=== PATIENT | male | born 1970 | race Caucasian/White ===

== ENCOUNTER 2022-12-19 18:46 | Inpatient (IN) | payer OTHER, SELFPAY ==
--- NOTE | ~2022-12-19 | XR_ITS ---
XR chest 1V portable DATE: 12/20/2022 01:48 INDICATION: Cough. Hypertension. TECHNIQUE: Portable upright AP chest. On 12/20/2022 at 0145 hours COMPARISON: September 17, 2015 2 view chest FINDINGS: There is pulmonary vascular, interstitial prominence and patchy pulmonary airspace disease suggesting congestive changes, pulmonary interstitial edema. Pneumonia is not excluded. Clinical destin elation is advised. No pleural effusion or pneumothorax is detected. IMPRESSION: Probable congestive changes Reviewed, dictated and finalized at location A. IMPRESSION: Probable congestive changes
--- NOTE | ~2022-12-19 | US_ITS ---
US venous doppler LE RT DATE: 12/20/2022 08:54 INDICATION: Erythema and swelling of right lower extremity TECHNIQUE: Real-time and color flow imaging and Doppler analysis of the veins of the right lower extr emity COMPARISON: None FINDINGS: Prominent lymph nodes are noted in the right groin area. There is spontaneous and phasic flow and normal augmentation and color flow signal and normal sis delroy of the deep veins of the right lower extremity. IMPRESSION: Evidence of deep venous thrombosis of right lower extremity Reviewed, dictated and finalized at Location A. Reviewed, dictated and finalized at location A.
--- NOTE | ~2022-12-19 | MR_ITS ---
EXAMINATION: MR foot RT wo con DATE: 12/22/2022 11:49 INDICATION: Right great toe ulcer. TECHNIQUE: Magnetic resonance imaging (MRI) of the right foot was performed without intravenous contr ast. COMPARISON: Right great toe radiographs 12/20/2022 FINDINGS: Bone alignment is normal. No fracture. There is moderate osteoarthritis of first tarsometat arsal joint. There is mild osteoarthritis of first metatarsophalangeal joint and some of the interpha langeal joints. There is an effusion of first metatarsophalangeal joint. The flexor and extensor tend ons are normal. There is mild intermetatarsal bursitis between the first and second rays. There is wi despread mild to moderate fatty atrophy of the musculature. There is increased T2-weighted signal int ensity in the musculature, likely subacute on chronic denervation. There is subcutaneous edema in the forefoot with a dorsal predominance. IMPRESSION: 1. No evidence of osteomyelitis. 2. Polyarticular osteoarthritis. Reviewed, dictated and finalized at location A.
--- NOTE | ~2022-12-19 | US_ITS ---
EXAMINATION: US arterial ankle brachial ind DATE: 12/21/2022 14:46 INDICATION: Right great toe ulcer. TECHNIQUE: Segmental pressures and plethysmographic and Doppler waveforms of the brachial and lower e xtremity arteries were obtained. COMPARISON: None. FINDINGS: Right and left brachial artery pressures of 101 mm Hg and 112 mm Hg, respectively, are concordant (no rmal difference <= 30 mmHg). The right ankle-brachial index (JEANINE) is 1.06 (normal >= 0.9-1.0). The right great toe-brachial index (TBI) is 0.85 (normal >= 0.65). Arterial Doppler waveforms are triphasic in posterior tibial artery a nd biphasic in dorsalis pedis. The left JEANINE is 1.09. The left TBI is 0.60. Arterial Doppler waveforms are biphasic in posterior tibi al artery and at least triphasic in dorsalis pedis. IMPRESSION: 1. Normal right JEANINE and TBI. No significant right-sided arterial occlusive disease. 2. Mildly decreased left TBI and normal left JEANINE, consistent with left-sided arterial occlusive disea se. Note that JEANINE may be overestimated if arteries are calcified. Reviewed, dictated and finalized at location A. IMPRESSION: 1. Normal right JEANINE and TBI. No significant right-sided arterial occlusive dise ase. 2. Mildly decreased left TBI and normal left JEANINE, consistent with left-sided ar terial occlusive disease. Note that JEANINE may be overestimated if arteries are ca lcified.
--- NOTE | ~2022-12-19 | XR_ITS ---
XR toe 1st RT min 2V DATE: 12/20/2022 01:30 INDICATION: Plantar wound TECHNIQUE: 3 views of the great toe COMPARISON: None FINDINGS: Small ulceration is suggested at the anterior aspect of the great toe. No subcutaneous emph ysema or radiopaque soft tissue foreign body, fracture, dislocation, periosteal reaction or bone dest ruction of the right great toe is evident. IMPRESSION: No significant bony abnormality of the right great toe Reviewed, dictated and finalized at location A.
[2022-12-19 19:49] VITALS: BP 96/50; PULSE 72; RESP 15; TEMP 36.7; O2SAT 96
[2022-12-19 20:05] LABS: Basophils Percent Auto 0.3 % (0.2-1.2); Eosinophils Absolute Auto 0.1 K/mm3 (0-0.3); Eosinophils Percent Auto 1.4 % (0-4.4); Hematocrit 38.7 % (42.0-52.0); Hemoglobin 13.5 g/dL (14.0-18.0); Immature Granulocyte Absolute 0.02 K/mm3 (0.00-0.031); Immature Granulocyte Percent A 0.3 % (0-0.5); Immature Platelet Fraction Pct 3.6 % (0.9-11.2); Lymphocytes Absolute Auto 0.87 K/mm3 (0.9-3.2); Lymphocytes Percent Auto 11.3 % (18.3-44.2); Mean Corpuscular HGB Conc 34.9 g/dl (32-36); Mean Corpuscular Hemoglobin 31.5 pg (26-34); Mean Corpuscular Volume 90.2 fl (80-100); Mean Platelet Volume 9.6 fl (7.4-10.4); Monocytes Percent Auto 12.9 % (2.6-8.5); Neutrophils Absolute Auto 5.7 K/mm3 (1.3-6.7); Neutrophils Percent Auto 73.8 % (45.5-73.1); Platelet Count Result 100 k/mm3 (150-375); Red Blood Count 4.29 M/mm3 (4.6-6.20); Red Cell Distribution Width 13.9 % (11.5-14.5); White Blood Count 7.7 K/mm3 (4.5-10.0)
[2022-12-19 20:16] LABS: Alanine Aminotransferase 60 U/L (6-50); Albumin Level 3.9 g/dL (3.5-5.1); Alkaline Phosphatase 114 U/L (38-126); Anion Gap 10 mmol/L (8-16); Aspartate Amino Transferase 151 U/L (17-59); Bilirubin,Total 1.5 mg/dL (0.2-1.3); Blood Urea Nitrogen 25 mg/dL (9-20); Calcium 8.4 mg/dL (8.4-10.2); Carbon Dioxide 21 mmol/L (22-30); Chloride 96 mmol/L (98-107); Estimated CRCL calculation 70 ml/min; Estimated Glomerular Filt Rate 49; Glucose 107 mg/dL (65-110); Potassium 3.2 mmol/L (3.4-5.0); Sodium 127 mmol/L (137-145)
[2022-12-20] VITALS (28 sets, daily range): BP systolic 78–109; BP diastolic 48–66; PULSE 60–77; RESP 14–34; TEMP 36.7–36.8; O2SAT 95–100; BMI 42.7
--- NOTE | 2022-12-20 00:53 | ED.EXTPRO ---
HPI - Extremity Problem General Chief complaint: Extremity Problem,Nontraumatic Stated complaint: right leg swelling Time Seen by Provider: 12/20/22 00:32 Source: patient Mode of arrival: ambulatory Limitations: no limitations History of Present Illness HPI Narrative: This is a 52-year-old male that presents to the emergency department for redness and swelling of the right lower extremity noted over the last 2 days. Reports he does have an ulceration to the right great toe. No recent travel. He does report that he recently had some teeth pulled a couple weeks ago. He denies any fevers. Related Data Home Medications Medication Instructions Recorded Confirmed carvedilol 12.5 mg tablet 12.5 mg PO Q12H 04/04/19 10/14/22 furosemide 40 mg tablet 40 mg PO QAM 04/04/19 10/14/22 potassium chloride 20 mEq 20 meq PO DAILY 04/04/19 10/14/22 tablet,extended release(part/cryst) (Klor-Con M) sacubitril 97 mg-valsartan 103 mg 1 tablet PO BID 04/04/19 10/14/22 tablet (Entresto) Allergies Allergy/AdvReac Type Severity Reaction Status Date / Time No Known Allergies Allergy Verified 12/19/22 19:54 Review of Systems Review of Systems: CONSTITUTIONAL: Denies fever CARDIOVASCULAR: Reports edema. Denies chest pain RESPIRATORY: Denies dyspnea. SKIN: Reports redness and swelling All systems reviewed & are unremarkable except as noted in HPI and below PMFSH Past Medical History Medical History (Updated 12/20/22 @ 04:20 by Nusrat Galvez PA-C) Cardiomyopathy Gout Morbid obesity with BMI of 45.0-49.9, adult Surgical History Surgical History History of arthroscopy of right knee (~2011) History of lumbar fusion (~11/04/14) History of total left knee replacement (~08/11/17) History of total right knee replacement (~06/16/17) Family History Family History Mother Family history of diabetes mellitus in first degree relative, Onset Age: 65 Other Family history of arthritis Social History Social History (Reviewed 10/14/22 @ 10:15 by ANY Reich Smoking packs per day: 0.25 Smoking cigarettes per day: 5.0 Years smoked: 10 Smoking pack-years: 2.50 Smoking status: Former smoker Second hand tobacco smoke exposure: No Smoking end date: 05/25/11 Alcohol intake: current Substance use: never Lack of Transportation: No Lack of Food: Never True Current Housing: I Have Housing Concerned About Future Housing: No Difficulty Paying Gas/Electric Bills: No Difficulty Paying for Meds: No Currently Unemployed: No Education: High School Diploma/GED Difficulty w/ Childcare or Family Care: No Exam Narrative: GENERAL: Well-appearing, well-nourished, and in no acute distress. HEAD: Normocephalic, atraumatic. EYES: EOMI. CHEST: Clear to auscultation. No respiratory distress. No wheezes rales or rhonchi HEART: Regular rate and rhythm. No murmur heard. Normal peripheral pulses. EXTREMITIES: Normal range of motion. Non pitting edema present to the right lower extremity with patchy erythema of the lower leg and thigh. Ulcerating wound noted to the right great toe that is foul smelling, but without surrounding erythema or abnormal drainage SKIN: Warm, dry, no rash. NEURO: No focal deficits. Alert and oriented x3. PSYCH: Normal mood and affect Course Course Emergency Course: Patient and family updated on workup and agree with plan of care Consultations Consultation #1: Spoke with hospitalist about patient and workup who accepts admission Date: 12/20/22 Vital Signs Vital signs: Vital Signs Temperature 98.1 F 12/19/22 19:49 Pulse Rate 72 12/19/22 19:49 Respiratory Rate 15 12/19/22 19:49 Blood Pressure 96/50 L 12/19/22 19:49 Pulse Oximetry 96 12/19/22 19:49 Oxygen Delivery Room Air 12/19/22 19:49 Temperature 98.3 F 12/20/22 00:
[2022-12-20] MEDS: SODIUM CHLORIDE 0.9% IV 500 ML 999 ML IV CONT (01:08)
[2022-12-20] MEDS: POTASSIUM CHLORIDE 20 MEQ PACKET (FOR LIQUID) 40 MEQ PO (01:08)
[2022-12-20] MEDS: PIPERACILLN/TAZ 3.375GM/NS50ML 3.375 GM/50 ML BAG IVPB (01:10)
[2022-12-20 01:36] LABS: Magnesium 2.2 mg/dL (1.6-2.3)
[2022-12-20] MEDS: SODIUM CHLORIDE 0.9% IV 1,000 ML 999 ML IV CONT ×2 (01:36→04:08)
[2022-12-20 01:39] LABS: Erythrocyte Sedimentation Rate 61 mm/hr (0-20)
[2022-12-20 01:45] LABS: INR 1.3; Prothrombin Time 16.4 Seconds (11.1-14.7)
[2022-12-20 01:46] LABS: Partial Thromboplastin Time 40.4 SECONDS (22.3-36.8)
[2022-12-20 01:58] LABS: Hemoglobin A1C 5.9 % (<5.7)
[2022-12-20 01:59] LABS: D Dimer 2.67 ug/mL (<0.48)
[2022-12-20 02:26] LABS: CRP 15.8 mg/dL (<1.0)
[2022-12-20 02:27] LABS: Influenza A QL RT-PCR Negative (Negative); Influenza B QL RT-PCR Negative (Negative); SARS-CoV-2 RNA PCR Negative (Negative)
--- NOTE | 2022-12-20 04:30 | ADMGEN ---
This patient, Krzysztof Urbina, was admitted to Intensive Care Unit-7. Patient/family oriented to hospital policies and general routines including ID bracelet, bed and alarms, visiting hours, pain management, procedures, bathroom and other care routines, personal items, smoking policy, room service/diet, and visiting hours. Information on how to activate the Rapid Response Team has been discussed. Patient/Family are encouraged to report perceived risks to care and to ask questions if they do not understand what they are told or what they should do.
--- NOTE | 2022-12-20 06:32 | PC.NURSE ---
Dr Jones called for VTE prophylaxis, 40 mg lovenox daily ordered.
[2022-12-20] MEDS: ENOXAPARIN 40 MG/0.4 ML SYRINGE SUB-Q (08:00)
--- NOTE | 2022-12-20 11:50 | PM.IMHP ---
H&P: HPI History of Present Illness Date/Time: 12/20/22 11:50 Chief Complaint: Redness and swelling of right lower extremity Narrative: 82-year-old male with history of heart failure, diabetes among other comorbidities is presenting with right lower extremity redness and swelling for about 2 days. There is also an ulceration noted about 2 weeks ago. He was started on IV antibiotics and admitted to the ICU for further care. He denies any falls or trauma to the area. No chest pain or shortness of breath. No nausea, vomiting or diarrhea. No fevers or chills. Review of Systems Review of Systems: 12 point review of systems was assessed and was negative except as noted in the HPI [facility] Past Medical History Medical History Cardiomyopathy Gout Morbid obesity with BMI of 45.0-49.9, adult Surgical History Surgical History History of arthroscopy of right knee (~2011) History of lumbar fusion (~11/04/14) History of total left knee replacement (~08/11/17) History of total right knee replacement (~06/16/17) Family History Family History Mother Family history of diabetes mellitus in first degree relative, Onset Age: 65 Myocardial infarction Other Family history of arthritis Social History Social History Smoking packs per day: 0.25 Smoking cigarettes per day: 5.0 Years smoked: 10 Smoking pack-years: 2.50 Smoking status: Former smoker Tobacco type: cigarettes Smokeless tobacco user: chewing tobacco Second hand tobacco smoke exposure: No Smoking end date: 05/25/11 Alcohol intake: current Drinks per week: 20 Substance use: never Lack of Transportation: No Lack of Food: Never True Current Housing: I Have Housing Concerned About Future Housing: No Difficulty Paying Gas/Electric Bills: No Difficulty Paying for Meds: No Currently Unemployed: No Education: High School Diploma/GED Difficulty w/ Childcare or Family Care: No Spiritual care concerns: No Meds Home Medications and Allergies Home Medications Medication Instructions Recorded Confirmed Type carvedilol 12.5 mg tablet 12.5 mg PO Q12H 04/04/19 12/20/22 History furosemide 40 mg tablet 40 mg PO QAM 04/04/19 12/20/22 History potassium chloride 20 mEq 20 meq PO DAILY 04/04/19 12/20/22 History tablet,extended release(part/cryst) (Klor-Con M) sacubitril 97 mg-valsartan 103 mg 1 tablet PO BID 04/04/19 12/20/22 History tablet (Entresto) allopurinol 300 mg tablet 300 mg PO DAILY #90 tabs 01/15/22 12/20/22 Rx tadalafil 20 mg tablet (Cialis) 20 mg PO DAILY PRN sexual activity 10/14/22 12/20/22 Rx #10 tabs multivitamin with minerals 1 tablet PO DAILY 12/20/22 12/20/22 History Allergies Allergy/AdvReac Type Severity Reaction Status Date / Time No Known Allergies Allergy Verified 12/19/22 19:54 Vital Signs Vital Signs - 24 hr 12/19/22 19:49 12/20/22 00:37 12/20/22 00:56 Temperature 98.1 F 98.3 F Pulse Rate 72 62 61 Respiratory Rate 15 14 17 Blood Pressure 96/50 L 78/48 L 81/48 L Pulse Oximetry 96 100 97 Oxygen Delivery Room Air 12/20/22 00:27 12/20/22 00:28 12/20/22 00:52 Temperature Pulse Rate 67 64 62 Respiratory Rate 17 Blood Pressure 82/48 L Pulse Oximetry 98 97 Oxygen Delivery 12/20/22 00:59 12/20/22 01:00 12/20/22 01:14 Temperature Pulse Rate 67 67 60 Respiratory Rate 30 H 31 H 34 H Blood Pressure 81/48 L 86/51 L Pulse Oximetry 98 97 Oxygen Delivery 12/20/22 01:15 12/20/22 01:16 12/20/22 02:06 Temperature Pulse Rate 60 60 Respiratory Rate 21 H 26 H Blood Pressure 83/51 L 88/50 L Pulse Oximetry Oxygen Delivery 12/20/22 01:46 12/20/22 02:36 12/20/22 04:08 Temperature Pulse Rate 65 63
[2022-12-20 11:53] LABS: Toxigenic C. Diff NEGATIVE (NEGATIVE)
[2022-12-20] MEDS: carvediloL 12.5 MG TABLET PO ×2 (12:31→21:01)
[2022-12-21] VITALS (9 sets, daily range): BP systolic 97–115; BP diastolic 53–61; PULSE 60–73; RESP 16–20; TEMP 36.4–37.2; O2SAT 97–99
[2022-12-21 04:24] LABS: Estimated CRCL calculation 131 ml/min; Estimated Glomerular Filt Rate > 60
--- NOTE | 2022-12-21 08:10 | PM.IMPN ---
Progress Note: A&P Assessment and Plan (1) Cellulitis: Qualifiers: Laterality: right Site of cellulitis: extremity Site of cellulitis of extremity: lower extremity Qualified Code(s): L03.115 - Cellulitis of right lower limb Code(s): L03.90 - Cellulitis, unspecified Status: Acute Assessment and Plan: Started on IV vancomycin 12/20, given 1 dose of Zosyn 12/20 Follow-up blood and wound cultures taken 12/20 (2) Gout: Code(s): M10.9 - Gout, unspecified Status: Acute Assessment and Plan: Hold allopurinol while inpatient (3) Obesity: Code(s): E66.9 - Obesity, unspecified Status: Acute (4) Diabetes mellitus type 2 in obese: Code(s): E11.69 - Type 2 diabetes mellitus with other specified complication; E66.9 - Obesity, unspecified Status: Acute Assessment and Plan: A1c 5.9, Accu-Cheks with sliding scale insulin Blood glucose reviewed 12/21 (5) Congestive heart failure: Code(s): I50.9 - Heart failure, unspecified Status: Acute Assessment and Plan: Chronic diastolic heart failure, grade 2 diastolic dysfunction noted on echo from 2021 Appears euvolemic Continue Coreg and Entresto Plan DVT prophylaxis with Lovenox GI prophylaxis not indicated Code status full code Subjective Date/time seen: 12/21/22 08:10 Interval history: 52-year-old male with history of heart failure diabetes is presenting with right lower extremity redness and swelling and currently being treated for cellulitis. No overnight events noted. No chest pain or shortness of breath. No nausea, vomiting or diarrhea. No fevers or chills. Review of Systems Review of Systems: 12 point review of systems was assessed and was negative except as noted in the HPI Exam Narrative: General: No acute distress, alert and oriented per baseline HEENT: Atraumatic, normocephalic, mucous membranes moist CV: Regular rate and rhythm, S1, S2 Lungs: Clear to auscultation bilaterally, no rales or crackles noted, no wheezes, good air entry Abdomen: Soft, nontender, nondistended Extremities: Normal to inspection Skin: Nonblanching petechial and purpuric rash over right lower extremity above the sock line to a few inches infrapatellar, ulcerating lesion noted on right great toe, plantar surface, rash is not spreading, somewhat more confluent in the middle with more aggregated redness Psych: Euthymic, normal affect Objective Data Vital Signs Vital Signs: Vital Signs - 24 hr 12/20/22 12:00 12/20/22 12:31 12/20/22 10:00 Temperature 98.1 F Pulse Rate 69 72 68 Respiratory Rate 30 H Blood Pressure 109/57 L Pulse Oximetry 99 Oxygen Delivery 12/20/22 12:00 12/20/22 14:00 12/20/22 16:00 Temperature Pulse Rate 70 69 66 Respiratory Rate Blood Pressure Pulse Oximetry Oxygen Delivery 12/20/22 16:00 12/20/22 18:00 12/20/22 12:00 Temperature 98.2 F Pulse Rate 64 77 Respiratory Rate 25 H Blood Pressure 98/58 L Pulse Oximetry 95 Oxygen Delivery Room Air 12/20/22 16:00 12/20/22 20:20 12/20/22 21:01 Temperature 98.1 F Pulse Rate 66 67 Respiratory Rate 20 Blood Pressure 96/48 L Pulse Oximetry 98 Oxygen Delivery Room Air 12/20/22 20:00 12/21/22 00:00 12/21/22 00:00 Temperature 98.9 F Pulse Rate 64 Respiratory Rate 20 Blood Pressure 97/56 L Pulse Oximetry 97 Oxygen Delivery Room Air Room Air 12/20/22 20:00 12/20/22 22:00 12/21/22 00:00 Temperature Pulse Rate 63 61 71 Respiratory Rate Blood Pressure Pulse Oximetry Oxygen Delivery 12/21/22 02:00 12/21/22 04:00 12/21/22 04:00 Temperature 98.2 F Pulse Rate 64 67 Respiratory Rate 16 Blood Pressure 114/61 Pulse Oximetry 97 Oxygen Delivery Room Air 12/21/22 04:00 12/21/22 06:00 Temperature Pulse Rate 73 62 Respiratory Rate Blood Pressure Pulse Oximetry Oxygen
[2022-12-21 08:15] LABS: Basophils Percent Auto 0.3 % (0.2-1.2); Eosinophils Percent Auto 4.7 % (0-4.4); Hematocrit 38.8 % (42.0-52.0); Hemoglobin 13.5 g/dL (14.0-18.0); Immature Granulocyte Absolute 0.02 K/mm3 (0.00-0.031); Immature Granulocyte Percent A 0.6 % (0-0.5); Lymphocytes Absolute Auto 0.78 K/mm3 (0.9-3.2); Lymphocytes Percent Auto 21.5 % (18.3-44.2); Mean Corpuscular HGB Conc 34.8 g/dl (32-36); Mean Corpuscular Hemoglobin 32.4 pg (26-34); Mean Platelet Volume 11.1 fl (7.4-10.4); Monocytes Absolute Auto 0.5 K/mm3 (0.1-0.6); Monocytes Percent Auto 14.1 % (2.6-8.5); Neutrophils Absolute Auto 2.1 K/mm3 (1.3-6.7); Neutrophils Percent Auto 58.8 % (45.5-73.1); Platelet Count Result 100 k/mm3 (150-375); Red Blood Count 4.17 M/mm3 (4.6-6.20); Red Cell Distribution Width 14.3 % (11.5-14.5); White Blood Count 3.6 K/mm3 (4.5-10.0)
[2022-12-21 08:16] LABS: Eosinophils Absolute Auto 0.2 K/mm3 (0-0.3)
[2022-12-21 08:29] LABS: Alanine Aminotransferase 57 U/L (6-50); Albumin Level 3.4 g/dL (3.5-5.1); Alkaline Phosphatase 106 U/L (38-126); Anion Gap 8 mmol/L (8-16); Aspartate Amino Transferase 105 U/L (17-59); Blood Urea Nitrogen 15 mg/dL (9-20); Calcium 8.3 mg/dL (8.4-10.2); Carbon Dioxide 23 mmol/L (22-30); Chloride 106 mmol/L (98-107); Estimated CRCL calculation 118 ml/min; Estimated Glomerular Filt Rate > 60; Glucose 89 mg/dL (65-110); Potassium 3.5 mmol/L (3.4-5.0); Sodium 137 mmol/L (137-145)
[2022-12-21 09:03] LABS: Glucose Point of Care 104 mg/dl (65-105)
[2022-12-21 09:08] LABS: Procalcitonin 2.5 ng/mL
[2022-12-21] MEDS: THERAPEUTIC MULTIVITAMINS/MINERALS TAB (*BKC) 1 TABLET PO (09:43)
[2022-12-21] MEDS: ENOXAPARIN 40 MG/0.4 ML SYRINGE SUB-Q (09:43)
[2022-12-21] MEDS: carvediloL 12.5 MG TABLET PO ×2 (09:43→21:33)
--- NOTE | 2022-12-21 10:05 | PC.NURSE ---
This patient, Krzysztof Urbina, was received from IMU on 12/21/22 at 1159. Patient/family oriented to unit policies and routines. Report received from JOSE ALBERTO Tolbert
--- NOTE | 2022-12-21 11:02 | PC.NURSE ---
This patient, Krzysztof Urbina, was transferred to [facility] on 12/21/22 at 1102. Personal belongings sent with patient. Report given to Marvin ABRAMS. Appropriate documentation sent with patient.
[2022-12-21 22:06] LABS: Glucose Point of Care 142 mg/dl (65-105)
[2022-12-22 04:00] VITALS: BP 107/62; PULSE 68; RESP 19; TEMP 36.3; O2SAT 98
[2022-12-22 08:22] LABS: Basophils Percent Auto 0.7 % (0.2-1.2); Eosinophils Absolute Auto 0.2 K/mm3 (0-0.3); Eosinophils Percent Auto 5.4 % (0-4.4); Hematocrit 39.1 % (42.0-52.0); Hemoglobin 13.4 g/dL (14.0-18.0); Immature Granulocyte Absolute 0.04 K/mm3 (0.00-0.031); Immature Granulocyte Percent A 0.9 % (0-0.5); Immature Platelet Fraction Pct 4.1 % (0.9-11.2); Lymphocytes Absolute Auto 1.01 K/mm3 (0.9-3.2); Lymphocytes Percent Auto 23.9 % (18.3-44.2); Mean Corpuscular HGB Conc 34.3 g/dl (32-36); Mean Corpuscular Hemoglobin 31.6 pg (26-34); Mean Corpuscular Volume 92.2 fl (80-100); Monocytes Absolute Auto 0.6 K/mm3 (0.1-0.6); Monocytes Percent Auto 13.5 % (2.6-8.5); Neutrophils Absolute Auto 2.4 K/mm3 (1.3-6.7); Neutrophils Percent Auto 55.6 % (45.5-73.1); Platelet Count Result 115 k/mm3 (150-375); Red Blood Count 4.24 M/mm3 (4.6-6.20); Red Cell Distribution Width 14.1 % (11.5-14.5); White Blood Count 4.2 K/mm3 (4.5-10.0)
[2022-12-22 08:40] LABS: Alanine Aminotransferase 59 U/L (6-50); Albumin Level 3.4 g/dL (3.5-5.1); Alkaline Phosphatase 106 U/L (38-126); Anion Gap 0 mmol/L (8-16); Aspartate Amino Transferase 86 U/L (17-59); Bilirubin,Total 1.1 mg/dL (0.2-1.3); Blood Urea Nitrogen 8 mg/dL (9-20); Calcium 8.8 mg/dL (8.4-10.2); Carbon Dioxide 28 mmol/L (22-30); Chloride 105 mmol/L (98-107); Estimated CRCL calculation 130 ml/min; Estimated Glomerular Filt Rate > 60; Glucose 94 mg/dL (65-110); Potassium 3.6 mmol/L (3.4-5.0); Sodium 133 mmol/L (137-145)
--- NOTE | 2022-12-22 08:56 | PM.IMPN ---
Progress Note: A&P Assessment and Plan (1) Cellulitis: Qualifiers: Laterality: right Site of cellulitis: extremity Site of cellulitis of extremity: lower extremity Qualified Code(s): L03.115 - Cellulitis of right lower limb Code(s): L03.90 - Cellulitis, unspecified Status: Acute Assessment and Plan: Started on IV vancomycin 12/20, given 1 dose of Zosyn 12/20 Follow-up blood and wound cultures taken 12/20 Wound cx came back GCS, de-escalate to ancef 2g q8h Blood cx NGTD, anticipate d/c on augmentin, eval for osteo pending, MR ordered 12/22 (2) Gout: Code(s): M10.9 - Gout, unspecified Status: Acute Assessment and Plan: Hold allopurinol while inpatient (3) Obesity: Code(s): E66.9 - Obesity, unspecified Status: Acute (4) Diabetes mellitus type 2 in obese: Code(s): E11.69 - Type 2 diabetes mellitus with other specified complication; E66.9 - Obesity, unspecified Status: Acute Assessment and Plan: A1c 5.9, Accu-Cheks with sliding scale insulin Blood glucose reviewed 12/22 (5) Congestive heart failure: Code(s): I50.9 - Heart failure, unspecified Status: Acute Assessment and Plan: Chronic diastolic heart failure, grade 2 diastolic dysfunction noted on echo from 2021 Appears euvolemic Continue Coreg, lasix, Entresto (6) Chronic cough: Code(s): R05.3 - Chronic cough Status: Acute Assessment and Plan: unsure of etiology, start PPI for possible GERD component, check echo to evaluate worsening heart failure, and consider antihistamines/flonase for possible PND, no real risk of medication side effect noted Plan DVT prophylaxis with Lovenox GI prophylaxis not indicated Code status full code Subjective Date/time seen: 12/22/22 08:56 Interval history: 52-year-old male with history of heart failure diabetes is presenting with right lower extremity redness and swelling and currently being treated for cellulitis. No overnight events noted. No chest pain or shortness of breath. No nausea, vomiting or diarrhea. No fevers or chills. Review of Systems Review of Systems: 12 point review of systems was assessed and was negative except as noted in the HPI Exam Narrative: General: No acute distress, alert and oriented per baseline HEENT: Atraumatic, normocephalic, mucous membranes moist CV: Regular rate and rhythm, S1, S2 Lungs: Clear to auscultation bilaterally, no rales or crackles noted, no wheezes, good air entry Abdomen: Soft, nontender, nondistended Extremities: Normal to inspection Skin: Nonblanching petechial and purpuric rash over right lower extremity above the sock line to a few inches infrapatellar, ulcerating lesion noted on right great toe, plantar surface, rash is not spreading, somewhat more confluent in the middle with more aggregated redness Psych: Euthymic, normal affect Objective Data Vital Signs Vital Signs: Vital Signs - 24 hr 12/21/22 09:43 12/21/22 12:00 12/21/22 12:24 Temperature 97.6 F Pulse Rate 62 65 Respiratory Rate 18 Blood Pressure 115/55 L Pulse Oximetry 98 Oxygen Delivery Room Air 12/21/22 20:00 12/21/22 21:33 12/21/22 20:00 Temperature 98.6 F Pulse Rate 64 60 60 Respiratory Rate 20 20 Blood Pressure 104/53 L Pulse Oximetry 99 99 Oxygen Delivery Room Air 12/21/22 23:51 12/22/22 04:00 Temperature 98.2 F 97.4 F L Pulse Rate 68 68 Respiratory Rate 17 19 Blood Pressure 112/59 L 107/62 Pulse Oximetry 98 98 Oxygen Delivery Intake/Output Intake/Output: Intake & Output 12/19/22 12/20/22 12/21/22 12/22/22 23:59 23:59 23:59 23:59 Intake Total 5548 2230 400 Output Total 700 3050 150 Balance 4848 -820 250 Meds/Results Medications: Active Medications Generic Name Dose Route Start Last Admin Trade Name Freq PRN Reason Stop Dose Admin Carvedilol 12.5 mg 12/20/22 12:15 12/21/22 21:3
[2022-12-22 09:00] LABS: Vancomycin Trough 6.4 ug/mL (10.0-20.0)
[2022-12-22 09:01] VITALS: PULSE 68
[2022-12-22] MEDS: carvediloL 12.5 MG TABLET PO (09:01)
[2022-12-22] MEDS: THERAPEUTIC MULTIVITAMINS/MINERALS TAB (*BKC) 1 TABLET PO (09:02)
[2022-12-22] MEDS: ENOXAPARIN 40 MG/0.4 ML SYRINGE SUB-Q (09:04)
[2022-12-22] MEDS: FLUTICASONE PROPIONATE 0.05% NA SPR 16 GM BTL (*BKC) 2 SPRAY NASAL (11:07)
[2022-12-22] MEDS: allopurinoL 300 MG TABLET PO (11:08)
[2022-12-22] MEDS: POTASSIUM CHLORIDE 20 MEQ ER TABLET PO (11:08)
[2022-12-22] MEDS: SACUBITRIL/VALSARTAN 97-103 MG TABLET 1 TAB PO (11:08)
[2022-12-22] MEDS: FUROSEMIDE 40 MG TABLET PO (11:08)
[2022-12-22] MEDS: PANTOPRAZOLE 40 MG TABLET PO (11:08)
--- NOTE | 2022-12-22 11:14 | PCCARD ---
CANCELLED ECHO ORDER DUE TO RECENT ECHO 11/26/22 IN THE HEART CARE'S OFFICE - CONFIRMED BY JOSEE BAEZA - DR HUTCHISON SAID ECHO NOT NEEDED OK TO CANCEL - RL
--- NOTE | 2022-12-22 13:18 | PM.DS ---
DS: Admitting Diagnosis Discharge Date 12/22/2022 Admitting Diagnosis Cellulitis DS: Discharge Diagnosis Discharge Diagnosis (1) Cellulitis: Qualifiers: Laterality: right Site of cellulitis: extremity Site of cellulitis of extremity: lower extremity Qualified Code(s): L03.115 - Cellulitis of right lower limb Code(s): L03.90 - Cellulitis, unspecified Status: Acute Assessment and Plan: Started on IV vancomycin 12/20, given 1 dose of Zosyn 12/20 Follow-up blood and wound cultures taken 12/20 Wound cx came back GCS, de-escalate to ancef 2g q8h Blood cx NGTD, anticipate d/c on augmentin, eval for osteo pending, MR ordered 12/22 (2) Gout: Code(s): M10.9 - Gout, unspecified Status: Acute Assessment and Plan: Hold allopurinol while inpatient (3) Obesity: Code(s): E66.9 - Obesity, unspecified Status: Acute (4) Diabetes mellitus type 2 in obese: Code(s): E11.69 - Type 2 diabetes mellitus with other specified complication; E66.9 - Obesity, unspecified Status: Acute Assessment and Plan: A1c 5.9, Accu-Cheks with sliding scale insulin Blood glucose reviewed 12/22 (5) Congestive heart failure: Code(s): I50.9 - Heart failure, unspecified Status: Acute Assessment and Plan: Chronic diastolic heart failure, grade 2 diastolic dysfunction noted on echo from 2021 Appears euvolemic Continue Coreg, lasix, Entresto (6) Chronic cough: Code(s): R05.3 - Chronic cough Status: Acute Assessment and Plan: unsure of etiology, start PPI for possible GERD component, check echo to evaluate worsening heart failure, and consider antihistamines/flonase for possible PND, no real risk of medication side effect noted Plan DVT prophylaxis with Lovenox GI prophylaxis not indicated Code status full code DS: Summary Hospital Course Hospital Course: 52-year-old male with history of heart failure diabetes is presenting with right lower extremity redness and swelling and currently being treated for cellulitis. Started on IV vancomycin 12/20, given 1 dose of Zosyn 12/20 Follow-up blood and wound cultures taken 12/20 Wound cx came back GCS, de-escalate to ancef 2g q8h Blood cx NGTD, d/c on augmentin, MRI negative for osteomyelitis Chronic diastolic heart failure, grade 2 diastolic dysfunction noted on echo from 2021 Appears euvolemic Continue Mayra, Fe strong Patient was complaining of chronic cough. Unsure of etiology, start PPI for possible GERD component, check echo to evaluate worsening heart failure, and consider antihistamines/flonase for possible PND, no real risk of medication side effect noted. Please see above and med rec for details. Time Spent with Patient Time attestation: Total time spent providing and/or coordinating discharge services: Exam Narrative: General: No acute distress, alert and oriented per baseline HEENT: Atraumatic, normocephalic, mucous membranes moist CV: Regular rate and rhythm, S1, S2 Lungs: Clear to auscultation bilaterally, no rales or crackles noted, no wheezes, good air entry Abdomen: Soft, nontender, nondistended Extremities: Normal to inspection Skin: Nonblanching petechial and purpuric rash over right lower extremity above the sock line to a few inches infrapatellar, ulcerating lesion noted on right great toe, plantar surface, rash is not spreading, somewhat more confluent in the middle with more aggregated redness Psych: Euthymic, normal affect DS: Data Data Completed and Pending Labs on day of discharge: Labs from last 24 hours 12/22/22 12/21/22 08:11 21:55 WBC 4.2 L RBC 4.24 L Hgb 13.4 L Hct 39.1 L MCV 92.2 MCH 31.6 MCHC 34.3 RDW 14.1 Plt Count 115 L MPV 10.0 Immature Gran % (Auto) 0.9 H Neut % (Auto) 55.6 Lymph % (Auto) 23.9 [place] % (Auto) 13.5 H Eos % (Auto) 5.4 H Baso % (Auto) 0.7 Lymph # (Auto) 1.01
== END 2022-12-22 15:00 | disposition home or self-care (01) | DRG 638 ==
LOC: ANHED 12-20 00:32 → ANHICU 12-20 03:33 → ANHIMU 12-20 19:05 → ANH2MED 12-21 09:22
PROVIDERS: Emergency Medicine; Admitting Provider Internal Medicine; Emergency Provider Physician Assistant; PCP Internal Medicine; Visit Provider Student in an Organized Health Care Education/Training Program
DX: E11.628 Type 2 diabetes mellitus with other skin complications (principal); I42.9 Cardiomyopathy, unspecified; L03.115 Cellulitis of right lower limb; Z68.41 Body mass index [BMI] 40.0-44.9, adult; I50.32 Chronic diastolic (congestive) heart failure; E11.621 Type 2 diabetes mellitus with foot ulcer; L97.519 Non-pressure chronic ulcer of other part of right foot with unspecified severity; Z20.822 Contact with and (suspected) exposure to COVID-19; E66.01 Morbid (severe) obesity due to excess calories; M10.9 Gout, unspecified; B95.4 Other streptococcus as the cause of diseases classified elsewhere; Z96.653 Presence of artificial knee joint, bilateral; Z98.1 Arthrodesis status; Z87.891 Personal history of nicotine dependence
CPT/HCPCS: 36415; 71045; 73660; 73718; 80053; 80202; 82565; 82948; 83036; 83605; 83735; 84145; 85025; 85055; 85380; 85610; 85652; 85730; 86140; 87040; 87070; 87147; 87205; 87493; 87636; 93922; 93971; 96361; 96365; 96366; 96367; 96372; 99285; A9270; G0378; J0690; J1650; J2543; J3370; J7030; J7040

== ENCOUNTER 2023-08-17 14:37 | Outpatient (CLI) | payer OTHER, SELFPAY ==
--- NOTE | ~2023-08-17 | CT_ITS ---
EXAMINATION: CT BRAIN W/O DATE: 08/17/2023 15:12 INDICATION: Diplopia TECHNIQUE: Computed tomography (CT) of the head was performed without and with 100 cc Omnipaque 350 i ntravenous contrast. The dose-length product was 1349.03 mGy-cm. Automated exposure control and itera tive reconstruction technique were employed. COMPARISON: No prior studies for comparison. FINDINGS: Normal brain parenchymal volume for age. Normal bell-white differentiation. No acute intrac ranial hemorrhage, infarction, mass or mass effect. No ventriculomegaly or midline shift. Midline sagittal images demonstrate a normal corpus callosum, c raniovertebral junction and sella turcica. Basilar cisterns are patent. Paranasal sinuses and mastoids are pneumatized. No depressed skull fractures. IMPRESSION: 1. No acute intracranial abnormality. Reviewed, dictated and finalized at location L.
[2023-08-17 15:00] LABS: Estimated Glomerular Filt Rate > 60
== END 2023-08-17 14:38 ==
PROVIDERS: PCP Internal Medicine; Visit Provider Internal Medicine
DX: H53.2 Diplopia (principal)
CPT/HCPCS: 70470; Q9967